=== PATIENT | female | born 1945 | race Caucasian/White ===

== ENCOUNTER 2016-09-14 15:24 | Outpatient (CLI) | payer OTHER ==
[2014-10-04 14:35] VITALS: BP 151/71
--- NOTE | 2016-09-14 16:27 | Diagnostic Imaging Report ---
[facility] [address] [facility] [address] 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 Electronically signed on Sep 14, 2016 4:05:44 PM FREIGHT ELEVATOR OPERATOR by: Damon LOPEZ
== END 2016-09-14 15:34 ==
LOC: RAD 15:24
PROVIDERS: ATTEND Family Medicine
DX: M25.552 Pain in left hip (principal)

== ENCOUNTER 2017-07-19 10:31 | Outpatient (CLI) | payer OTHER ==
[2014-10-04 14:35] VITALS: BP 151/71
== END 2017-07-19 10:32 ==
LOC: RAD 10:31
PROVIDERS: ATTEND Family Medicine
DX: M85.89 Other specified disorders of bone density and structure, multiple sites (principal)
CPT/HCPCS: 77080